=== PATIENT | male | born 1950 | race Caucasian/White ===

== ENCOUNTER 2021-05-20 11:59 | Outpatient (CLI) | payer MEDICARE, MEDICAID ==
[2021-05-20 15:02] LABS: PTT 25.1 sec (22.0-33.0); Prothrombin Time 11.4 sec (9.5-12.1)
[2021-05-20 15:07] LABS: Hemoglobin 14.4 g/dL (13.5-17.5); Mean Corpuscular HGB CONC 33.3 g/dL (32.0-36.0); Mean Corpuscular Volume 93.3 fl (81.2-95.1); Platelet Count 170 10x3/uL (150-450); RBC Distribution Width 11.1 % (11.5-14.5); Red Blood Cell (RBC) Count 4.64 10x6/uL (4.32-5.72); White Blood Cell (WBC) Count 6.3 10x3/uL (3.5-10.5)
[2021-05-21 11:09] LABS: SARS-CoV-2 PCR by NAA Not Detected (NotDetected)
== END 2021-05-20 12:00 | disposition home or self-care (01) ==
LOC: LABBT 11:59
PROVIDERS: ATTEND Neurological Surgery
DX: Z01.818 Encounter for other preprocedural examination (principal); M47.12 Other spondylosis with myelopathy, cervical region; Z20.822 Contact with and (suspected) exposure to COVID-19
CPT/HCPCS: 85027; 85610; 85730; 93005; U0003; U0005; 93010

== ENCOUNTER 2021-05-20 12:00 | Observation (INO) | payer MEDICARE, MEDICAID ==
[2021-05-24 10:12] VITALS: BMI 21.6
[2021-05-25] MEDS ORDERED: Neomycin-Polymyxin 1 ML AMP ONE (06:10)
[2021-05-25] MEDS ORDERED: Thrombin 5000 UNITS/5 ML VIAL ONE (06:10)
[2021-05-25] MEDS ORDERED: Ketamine 50 MG/ML (10ML VIAL) ONE (06:45)
[2021-05-25] MEDS ORDERED: Fentanyl 100 MCG/2 ML VIAL ONE ×2 (06:45→12:17)
[2021-05-25 06:49] LABS: Anion Gap 14 mmol/L (10-20); BUN (Urea Nitrogen) 10 mg/dL (8.4-25.7); Calc. Creatinine Clearance 83 mL/min (70-130); Calcium 9.7 mg/dL (7.8-10.44); Carbon Dioxide 25 mmol/L (23-31); Chloride 104 mmol/L (98-107); Glucose 93 mg/dL (80-115); Sodium 139 mmol/L (136-145)
[2021-05-25] MEDS ORDERED: Glycopyrrolate 0.2 MG/ML 5 ML SYRINGE ONE (07:00)
[2021-05-25] MEDS ORDERED: Lidocaine 1% PF 5 ML VIAL ONE (07:00)
[2021-05-25] MEDS ORDERED: Dexamethasone 20 MG/5 ML VIAL ONE (07:00)
[2021-05-25] MEDS ORDERED: Rocuronium Bromide 10 MG/ML (10ML VIAL) ONE (07:00)
[2021-05-25] MEDS ORDERED: Vecuronium 10 MG VIAL ONE (07:00)
[2021-05-25] MEDS ORDERED: ePHEDrine Sulfate 50 MG/10 ML VIAL ONE (07:00)
[2021-05-25] MEDS ORDERED: PROPOFOL 200 MG/20 ML VIAL ONE (07:00)
[2021-05-25] MEDS ORDERED: Promethazine HCl 12.5 MG SUPP PR PRN (10:57)
[2021-05-25] MEDS ORDERED: Promethazine HCl 25 MG/ML VIAL IM PRN ×2 (10:57→11:33)
[2021-05-25] MEDS ORDERED: Promethazine 25 MG TAB PO PRN (10:57)
[2021-05-25] MEDS ORDERED: diphenhydrAMINE 50 MG/ML VIAL IVP PRN (10:57)
[2021-05-25] MEDS ORDERED: Morphine 2 MG/ML VIAL SLOW IVP PRN (10:57)
[2021-05-25] MEDS ORDERED: diphenhydrAMINE 25 MG CAP PO PRN (10:57)
[2021-05-25] MEDS ORDERED: Morphine 4 MG/ML VIAL SLOW IVP PRN (10:57)
[2021-05-25] MEDS ORDERED: Acetaminophen/Codeine 30-300mg Tablet PO PRN (10:57)
[2021-05-25] MEDS ORDERED: Ondansetron PF 4 MG/2 ML Vial IVP PRN (10:57)
[2021-05-25] MEDS ORDERED: Promethazine HCl 25 MG/ML VIAL IVPB PRN (11:33)
[2021-05-25] MEDS ORDERED: Ondansetron HCl/PF 4 MG/2 ML Vial IVP PRN (11:33)
[2021-05-25] MEDS ORDERED: Morphine Sulfate 2 MG/ML SYRINGE SLOW IVP PRN (11:33)
[2021-05-25] MEDS ORDERED: HYDROmorphone 2 MG/ML VIAL SLOW IVP PRN (11:33)
[2021-05-25] MEDS ORDERED: PACU-Morphine 4MG/ML VIAL SLOW IVP PRN (11:33)
[2021-05-25] MEDS ORDERED: Scopolamine 1.5 mg/72 hour Patch TD SCH (13:00)
[2021-05-25] MEDS ORDERED: HYDROcodone/Acetaminophen 5/325 mg Tablet ONE (14:29)
[2021-05-25] MEDS ORDERED: CEFAZOLIN 2 GM in Premix Bag 1 BAG IVPB SCH (15:00)
[2021-05-25] MEDS: CEFAZOLIN 2 GM in Premix Bag 1 BAG IVPB SCH (19:37)
[2021-05-25] MEDS: Sodium Chloride 0.9% 1,000 ML IV SCH (19:40)
[2021-05-25] MEDS: ALPRAZolam 1 MG TAB PO PRN (20:36)
[2021-05-25] MEDS: tiZANidine HCl 4 MG TAB PO PRN (20:38)
[2021-05-25] MEDS: Acetaminophen/Codeine 30-300mg Tablet PO PRN (23:16)
[2021-05-26] MEDS: tiZANidine HCl 4 MG TAB PO PRN (02:30)
[2021-05-26] MEDS: Sodium Chloride 0.9% 1,000 ML IV SCH ×2 (02:31→15:22)
[2021-05-26] MEDS: CEFAZOLIN 2 GM in Premix Bag 1 BAG IVPB SCH (02:31)
[2021-05-26] MEDS: Acetaminophen/Codeine 30-300mg Tablet PO PRN ×2 (03:37→12:15)
[2021-05-26] MEDS: ALPRAZolam 1 MG TAB PO PRN ×2 (04:57→15:19)
[2021-05-26] MEDS ORDERED: Tamsulosin HCl 0.4 MG CAP PO SCH (06:00)
[2021-05-26] MEDS ORDERED: ALPRAZolam 1 MG TAB PO PRN (08:46)
[2021-05-26] MEDS ORDERED: Tamsulosin HCl 0.4 MG CAP PO PRN (08:46)
[2021-05-26] MEDS ORDERED: Famotidine 20 MG TAB PO PRN (08:46)
[2021-05-26] MEDS ORDERED: Fluticasone Propionate Nasal Spray 16 gm Bottle NASAL SCH (09:00)
[2021-05-26] MEDS ORDERED: Pantoprazole 40 MG GRANULES PACKET PO SCH (09:00)
[2021-05-26] MEDS ORDERED: Losartan 25 MG TAB PO SCH (09:00)
[2021-05-26 16:24] VITALS: BP 143/74; TEMP 98.4
== END 2021-05-26 17:59 | disposition home or self-care (01) ==
LOC: INTOOBSV 05-25 05:46 → SURG A 05-25 05:46 → SURG B 05-25 17:42
PROVIDERS: ADMIT Neurological Surgery; ATTEND Neurological Surgery
PROC: 0RG20A0 Fusion of 2 or more Cervical Vertebral Joints with Interbody Fusion Device, Anterior Approach, Anterior Column, Open Approach (ICD-10-PCS; principal; 2021-05-25)
PROC: 0RT30ZZ Resection of Cervical Vertebral Disc, Open Approach (ICD-10-PCS; 2021-05-25)
DX: M50.121 Cervical disc disorder at C4-C5 level with radiculopathy (principal); M50.021 Cervical disc disorder at C4-C5 level with myelopathy; M48.02 Spinal stenosis, cervical region; M47.22 Other spondylosis with radiculopathy, cervical region; M47.12 Other spondylosis with myelopathy, cervical region; G89.29 Other chronic pain; I10 Essential (primary) hypertension; N40.1 Benign prostatic hyperplasia with lower urinary tract symptoms; R33.8 Other retention of urine; Z87.891 Personal history of nicotine dependence; Z79.82 Long term (current) use of aspirin; Z79.899 Other long term (current) drug therapy; Z88.1 Allergy status to other antibiotic agents; Z91.041 Radiographic dye allergy status
CPT/HCPCS: 20930; 20936; 22551; 22552 ×2; 22846; 22853 ×3; 76000; 80048; C1713 ×4; C1776; J2270; 36415; 51702; 51798; 96374; 96375; 96376; G0378; J0690; J1100; J2704; J3010